=== PATIENT | male | born 1950 | race Caucasian/White ===

== ENCOUNTER 2021-10-07 18:01 | Inpatient (IN) | payer MEDICARE, OTHER ==
[~2021-10-07] VITALS: Ht 198.1 cm; Wt 64.9 kg
[2021-10-07 18:48] LABS: HEMATOCRIT 36.2 % (36.7-47.1); MEAN CORPUSCULAR HEMOGLOBIN 34.4 uug (23.8-33.4); MEAN CORPUSCULAR VOLUME 101.2 fL (73.0-96.2); PLATELET COUNT (AUTO) 223 K/uL (152-348)
[2021-10-07 18:59] LABS: POTASSIUM 4.3 mmol/L (3.5-5.1)
[2021-10-07 19:04] LABS: BILIRUBIN,DIRECT 0.3 mg/dL (0.0-0.2); BILIRUBIN,TOTAL 0.9 mg/dL (0.2-1.0); TOTAL PROTEIN, SERUM 6.9 g/dL (6.4-8.2)
[2021-10-07] MEDS ORDERED: MORPHINE SULFATE 2 MG/1 ML DISP.SYRIN IV ONE (19:15)
[2021-10-07] MEDS ORDERED: MORPHINE SULFATE 4 MG/1 ML DISP.SYRIN ONE (19:27)
--- NOTE | 2021-10-07 19:45 | NUR ---
Dr. Rodas at bedside speaking with pt and family. pt here for right hip pain.
--- NOTE | 2021-10-07 20:11 | NUR ---
spoke with Kit at [facility]. will fax clinicals covid and labs to fax [phone].
[2021-10-07] MEDS ORDERED: IV NS 1000 ML 1,000 ML IV ONE (20:45)
--- NOTE | 2021-10-07 20:54 | NUR ---
received a call from [facility] says she is still working on a possible tr.
--- NOTE | 2021-10-07 21:04 | NUR ---
Hector called back from [facility] no tele beds tonight. possible ED to ED tr. arrieta call back.
--- NOTE | 2021-10-07 21:19 | NUR ---
spoke with Svetlana lead case manager in [place] they state they will not do ED to ED transfer.
--- NOTE | 2021-10-08 00:13 | NUR ---
call to Dr. Munoz for consult.
--- NOTE | 2021-10-08 00:27 | NUR ---
call to [facility] spoke with Jhony states transport will take pt to [facility] for cat scan after they transport another pt from [facility].
[2021-10-08] MEDS ORDERED: FOLI1TAB94 PO (00:40)
[2021-10-08] MEDS ORDERED: ERGO400C PO (00:40)
[2021-10-08] MEDS ORDERED: THIA100V2 IM (00:40)
[2021-10-08] MEDS ORDERED: LEVO50TA8 PO (00:40)
[2021-10-08] MEDS ORDERED: BENA20TA9 PO (00:40)
[2021-10-08] MEDS ORDERED: DOXY50CA2 PO (00:40)
[2021-10-08] MEDS ORDERED: IBAN150T16 PO (00:40)
[2021-10-08] MEDS ORDERED: PANT40TA49 PO (00:40)
--- NOTE | 2021-10-08 01:39 | NUR ---
called [facility] for panel call
--- NOTE | 2021-10-08 01:48 | NUR ---
Dr. Rodas is speaking with Nahid Hutchins for admission. pt is going to [facility] for ct head and ct cervical with [facility] rig [address].
--- NOTE | 2021-10-08 01:59 | NUR ---
pt taken to [facility] by [facility] for cat scan of head and cervical. [address].
[2021-10-08] MEDS ORDERED: ACETAMINOPHEN 325 MG TABLET PO PRN (02:00)
[2021-10-08] MEDS ORDERED: LORAZEPAM 2 MG/1 ML VIAL IV PRN (02:00)
[2021-10-08] MEDS ORDERED: ONDANSETRON 4 MG/2 ML VIAL IV PRN (02:00)
[2021-10-08] MEDS ORDERED: MORPHINE SULFATE 2 MG/1 ML DISP.SYRIN IV PRN ×2 (02:00→06:00)
--- NOTE | 2021-10-08 03:03 | NUR ---
pt returned from [facility] after having a cat scan of the head and cervical.
--- NOTE | 2021-10-08 04:16 | NUR ---
report given to Michelle KWON pt to go to room 321.
--- NOTE | 2021-10-08 04:16 | NUR ---
Received admission report from ARIELLE Velazquez RN.
--- NOTE | 2021-10-08 04:45 | NUR ---
Patient arrived to the floor via gurney accompanied by ER nurse. Awake, AO x 4, verbally responsive, able to make needs known. Transferred to bed with 3 people assist with limited/restricted range of motion on RLE. Patient complaint of pain when touched on affected area. On continuous O2 at 2L/min via NC saturating 98% at this time. VS taken and recorded, stable. Oriented to staff, room, call lights, TV remote and bed functions. Safety measures and fall prevention initiated. Routine admission care done. Plan of care initiated.
--- NOTE | 2021-10-08 04:55 | NUR ---
pt was transferred to room 321 via [facility] with all belongings, DOYLE Martinez in room to receive the pt.
[2021-10-08 05:40] VITALS: BP 141/76
[2021-10-08] MEDS: IV NS 1000 ML 1,000 ML IV PRN ×2 (05:54→22:20)
[2021-10-08] MEDS: ENOXAPARIN SODIUM 40 MG/0.4 ML DISP.SYRIN SQ SCH (05:55)
--- NOTE | 2021-10-08 06:38 | NUR ---
Patient medicated once with Morphine 4 mg IVP as ordered and needed due to complaint of lower neck and right hip pain in scale of 10/10. Will monitor.
--- NOTE | 2021-10-08 08:00 | NUR ---
RECEIVED PATIENT RESTING IN BED NO SIGNS OF ACUTE PAIN UNLESS DURING POSITIONING. MONITORED FOR PAIN MANAGEMENT
[2021-10-08] MEDS ORDERED: PANTOPRAZOLE SODIUM 40 MG TABLET.DR PO SCH (09:00)
[2021-10-08] MEDS ORDERED: Medication Not On Formulary EA (Cholecalciferol (Vitamin D3) (Vitamin D3) 1 CAP) PO SCH (09:00)
[2021-10-08] MEDS ORDERED: DOXYCYCLINE HYCLATE 50 MG PO SCH (09:00)
[2021-10-08] MEDS: BENAZEPRIL HCL 20 MG TABLET PO SCH ×2 (09:20→21:18)
[2021-10-08] MEDS: FOLIC ACID 1 MG TABLET PO SCH (09:21)
[2021-10-08] MEDS: THIAMINE HCL 100 MG TABLET PO SCH (09:21)
[2021-10-08] MEDS: DOXYCYCLINE HYCLATE 100 MG TABLET PO SCH (09:21)
[2021-10-08] MEDS: CHOLECALCIFEROL 400 UNITS TABLET PO SCH (09:21)
[2021-10-08] MEDS: PANTOPRAZOLE SODIUM 40 MG VIAL IV SCH (09:21)
[2021-10-08] MEDS: LEVOTHYROXINE SODIUM 50 MCG TABLET PO SCH (09:29)
--- NOTE | 2021-10-08 10:00 | NUR ---
SEEN BY DR ZHENG SPOKE TO AND DISCUSSED PLAN OF CARE. PER DR RUTH SURGERY WILL BE EITHER TODAY OR TOMORROW DEPENDING ON ECHO RESULTS
[2021-10-08 11:44] VITALS: BP 118/62
[2021-10-08 15:48] VITALS: BP 111/74
--- NOTE | 2021-10-08 17:54 | NUR ---
SPOKE WITH UROLOGY PHYSICIAN ON DUTY AND SAID SURGERY WILL BE TOMORROW AT 0730. PATIENT TO BE NPO 8 HRS BEFORE SURGERY. WILL PASS TO BLASTING HELPER
--- NOTE | 2021-10-08 20:11 | NUR ---
Received patient in bed awake and able to make needs known.Denies pain at this time. On 2LPM via NC.IV on right AC was accidentally pulled out by patient. Re-inserted new IV line on left FA 20g with good blood return infusing IVF.NPO after 2300. Patient made aware.Will continue to monitor.Continue safety measures.
[2021-10-08 21:05] VITALS: BP 108/82
[2021-10-09] VITALS (7 sets, daily range): BP systolic 102–146; BP diastolic 67–100
[2021-10-09] MEDS ORDERED: VANCOMYCIN 1000 MG VIAL ONE (06:15)
[2021-10-09 06:45] LABS: HEMATOCRIT 28.6 % (36.7-47.1); MEAN CORPUSCULAR HEMOGLOBIN 34.8 uug (23.8-33.4); MEAN CORPUSCULAR VOLUME 100.9 fL (73.0-96.2); PLATELET COUNT (AUTO) 155 K/uL (152-348)
[2021-10-09] MEDS: LEVOTHYROXINE SODIUM 50 MCG TABLET PO SCH (06:50)
--- NOTE | 2021-10-09 07:00 | NUR ---
Patient picked up by nurses for Rt hip Im nailing. at bedside. VSs. AFebrile throughout the night.
[2021-10-09 07:12] LABS: CREATININE 0.8 mg/dL (0.6-1.3); MAGNESIUM 1.3 mg/dL (1.8-2.4); PHOSPHOROUS 2.5 mg/dL (2.5-4.9); POTASSIUM 4.1 mmol/L (3.5-5.1)
[2021-10-09 07:18] LABS: *BILIRUBIN,URIN 1+ (NEGATIVE); *BLOOD, URINE NEGATIVE (NEGATIVE); *CLARITY,URINE CLEAR (CLEAR); *COLOR,URINE YELLOW (YELLOW); *KETONES,URINE 3+ (NEGATIVE); *UROBILINOGEN,URINE 0.2 E.U./dl (NORMAL); LEUKOCYTE ESTERASE ,URINE NEGATIVE (NEGATIVE); NITRITE, URINE NEGATIVE (NEGATIVE); UGLUCOSE NEGATIVE (NEGATIVE)
[2021-10-09] MEDS ORDERED: FAMOTIDINE. 20 MG/2 ML VIAL IV ONE (07:28)
[2021-10-09] MEDS ORDERED: MIDAZOLAM HCL 2 MG/2 ML VIAL ONE (07:28)
[2021-10-09] MEDS ORDERED: HYDROMORPHONE 2 MG/1 ML DISP.SYRIN ONE (07:28)
[2021-10-09] MEDS ORDERED: ROCURONIUM BROMIDE 50 MG/5 ML VIAL ONE (07:29)
[2021-10-09 07:38] LABS: THYROID STIMULATING HORMONE 2.507 mIU/mL (0.358-3.740)
[2021-10-09] MEDS ORDERED: EPHEDRINE SULFATE 50 MG/ML AMPUL IM ONE (08:13)
[2021-10-09] MEDS ORDERED: SEVOFLURANE 250 ML BOTTLE IH ONE (08:13)
[2021-10-09] MEDS ORDERED: CEFAZOLIN 1 G VIAL IM ONE (08:13)
[2021-10-09] MEDS ORDERED: LIDOCAINE-MPF 2% 5 ML VIAL IJ ONE (08:13)
[2021-10-09] MEDS ORDERED: DEXAMETHASONE SOD PHOSPHATE 4 MG INJ IV ONE (08:13)
[2021-10-09] MEDS ORDERED: PROPOFOL 200 MG/20 ML BOTTLE IV ONE (08:13)
[2021-10-09] MEDS ORDERED: KETOROLAC TROMETHAMINE 30 MG INJ IM ONE (08:13)
[2021-10-09] MEDS ORDERED: ONDANSETRON 4 MG/2 ML VIAL IV ONE ×2 (08:13)
[2021-10-09 08:54] LABS: RBC,URINE NONE SEEN /HPF (0-3)
[2021-10-09 08:55] LABS: BACTERIA,URINE NONE SEEN /HPF (NONE SEEN); SQUAMOUS EPITHELIAL CELL,UR FEW /HPF (NONE SEEN); WBC,URINE 0-3 /HPF (0-3)
[2021-10-09] MEDS: THIAMINE HCL 100 MG TABLET PO SCH (09:00)
[2021-10-09] MEDS: ENOXAPARIN SODIUM 40 MG/0.4 ML DISP.SYRIN SQ SCH (09:00)
[2021-10-09] MEDS: BENAZEPRIL HCL 20 MG TABLET PO SCH ×2 (09:00→21:00)
[2021-10-09] MEDS: PANTOPRAZOLE SODIUM 40 MG VIAL IV SCH (09:00)
[2021-10-09] MEDS: DOXYCYCLINE HYCLATE 100 MG TABLET PO SCH (09:00)
[2021-10-09] MEDS: FOLIC ACID 1 MG TABLET PO SCH (09:00)
[2021-10-09] MEDS: CHOLECALCIFEROL 400 UNITS TABLET PO SCH (09:00)
[2021-10-09] MEDS ORDERED: MORPHINE SULFATE 2 MG/1 ML DISP.SYRIN IV PRN (10:00)
[2021-10-09] MEDS: MAGNESIUM SULFATE/D5W 100 ML IV SCH ×4 (10:24→13:53)
--- NOTE | 2021-10-09 10:45 | NUR ---
Patient back from surgery s/p Rt hip nailing .Sx site with dressing intact clean and dry.No active bleeding noted. O2 at 2LPM via Nc .no acute distress noted.Patient OOB with PT in A.M PWB right leg w/ walker.Continue ATB x3 doses. Administered mg IV as ordered. Will continue to monitor. at bedside.VSs
--- NOTE | 2021-10-09 13:30 | NUR ---
Pt confused. Reorient patient to time and place. Pt visually hallucinating and pointing to the ceiling that there are crickets. stated to pt that theres no crickets on the ceiling. Ice applied on right hip. Pt able to follow directions. Pt able to wiggle toes and feel sensation. Dressing noted on right hip. Call light is within reach. IVF infusing as ordered. Call light is within reach.
--- NOTE | 2021-10-09 13:35 | NUR ---
SW attempted to do a consult to provide resources for alcoholism treatment for the patient. The patient is too sedated after anesthesia from surgery. SW will follow up.
[2021-10-09] MEDS: CEFAZOLIN 1 G in IV DEXTROSE 5% 50 ML IV SCH (15:12)
[2021-10-09] MEDS: IV D5W-0.45% NS +20 KCL 1,000 ML IV PRN (15:14)
[2021-10-09] MEDS ORDERED: LACTULOSE 20 G/30 ML LIQUID UDC PO PRN (19:15)
[2021-10-10] MEDS: CEFAZOLIN 1 G in IV DEXTROSE 5% 50 ML IV SCH (00:38)
[2021-10-10 04:20] VITALS: BP 150/90
[2021-10-10] MEDS: HYDROCODONE/APAP 10-325 MG TABLET PO PRN ×2 (04:56→20:12)
[2021-10-10] MEDS: LEVOTHYROXINE SODIUM 50 MCG TABLET PO SCH (06:36)
[2021-10-10] MEDS: IV D5W-0.45% NS +20 KCL 1,000 ML IV PRN (06:47)
[2021-10-10] MEDS: FOLIC ACID 1 MG TABLET PO SCH (08:42)
[2021-10-10] MEDS: PANTOPRAZOLE SODIUM 40 MG VIAL IV SCH (08:42)
[2021-10-10] MEDS: CHOLECALCIFEROL 400 UNITS TABLET PO SCH (08:42)
[2021-10-10] MEDS: THIAMINE HCL 100 MG TABLET PO SCH (08:42)
[2021-10-10] MEDS: DOXYCYCLINE HYCLATE 100 MG TABLET PO SCH (08:42)
[2021-10-10] MEDS: BENAZEPRIL HCL 20 MG TABLET PO SCH ×2 (08:43→20:13)
[2021-10-10] MEDS: ENOXAPARIN SODIUM 40 MG/0.4 ML DISP.SYRIN SQ SCH (08:49)
--- NOTE | 2021-10-10 09:43 | NUR ---
Seen by PT, patient is fearful and needs further teaching regarding healing process post op. Patient is alert to self and place with some confusion and forgetfulness, able to reorient easily. Denies any pain while at rest, c/o pain to right hip on movement and exercise. no SOB, on RA. Able to use urinal for voiding, urine is clear and yazan. All need attended, call light within reach.
[2021-10-10 11:24] LABS: HEMATOCRIT 24.6 % (36.7-47.1); MEAN CORPUSCULAR VOLUME 101.4 fL (73.0-96.2); PLATELET COUNT (AUTO) 178 K/uL (152-348)
[2021-10-10 11:37] LABS: BILIRUBIN,TOTAL 0.8 mg/dL (0.2-1.0); POTASSIUM 3.8 mmol/L (3.5-5.1); TOTAL PROTEIN, SERUM 5.7 g/dL (6.4-8.2)
[2021-10-10 11:39] LABS: MAGNESIUM 2.2 mg/dL (1.8-2.4); PHOSPHOROUS 2.1 mg/dL (2.5-4.9)
[2021-10-10] MEDS: CHLORDIAZEPOXIDE HCL 25 MG CAPSULE PO SCH ×2 (11:50→17:13)
[2021-10-10] MEDS ORDERED: SODIUM PHOSPHATE MM 15 MMOL in IV NORMAL SALINE 250 ML IV ONE (17:00)
--- NOTE | 2021-10-10 17:00 | NUR ---
Patient noted to have shallow breathing and wheezing, Incentive spirometer provided, patient is passive when teaching is provided, needs further reinforcement of teaching. at bedside and willing to continue teaching. is able to demonstrate correct use of IS.
[2021-10-10 17:14] VITALS: BP 117/73
[2021-10-10 20:00] VITALS: BP 123/73
[2021-10-11 04:00] VITALS: BP 144/86
[2021-10-11] MEDS: LEVOTHYROXINE SODIUM 50 MCG TABLET PO SCH (06:17)
[2021-10-11] MEDS: PANTOPRAZOLE SODIUM 40 MG TABLET.DR PO SCH (06:17)
[2021-10-11] MEDS ORDERED: ALBUTEROL SULFATE 2.5 MG/3 ML NEBU NEB PRN (06:30)
[2021-10-11] MEDS ORDERED: IPRATROPIUM BROMIDE 0.5 MG/2.5 ML NEBU NEB PRN (06:30)
--- NOTE | 2021-10-11 06:35 | NUR ---
Patient noted with increased wheezing, 02 sats remain 92-94 on 2L 02 sats. DELPHI DEVELOPER housing relocation Cuong made aware with orders for Albuterol and atrovent nebulizers/ RT made aware of need for treatment.
[2021-10-11 07:22] LABS: HEMATOCRIT 23.2 % (36.7-47.1); MEAN CORPUSCULAR HEMOGLOBIN 35.3 uug (23.8-33.4); MEAN CORPUSCULAR VOLUME 101.3 fL (73.0-96.2); PLATELET COUNT (AUTO) 150 K/uL (152-348)
[2021-10-11 07:40] LABS: CREATININE 0.8 mg/dL (0.6-1.3); MAGNESIUM 1.8 mg/dL (1.8-2.4); PHOSPHOROUS 3.1 mg/dL (2.5-4.9); POTASSIUM 3.8 mmol/L (3.5-5.1)
--- NOTE | 2021-10-11 08:00 | NUR ---
PT ON BED AWAKE AND CONFUSED . NO DISTRESS NOTED. ON 2L NC SATURATING AT 98%.NO COMPLAIN OF PAIN. INCISION ON RIGHT HIP NOTED FROM SURGERY. DRESSING IS NOT SOILED. WILL MONITOR FOR BLEEDING.
[2021-10-11] MEDS: HYDROCODONE/APAP 10-325 MG TABLET PO PRN ×2 (08:51→20:26)
[2021-10-11] MEDS ORDERED: ACET325T53 PO (09:12)
[2021-10-11] MEDS ORDERED: ENOX40DI SQ (09:12)
[2021-10-11] MEDS ORDERED: CHLO25CA22 PO (09:12)
[2021-10-11] MEDS ORDERED: THIA100T13 PO (09:12)
[2021-10-11] MEDS ORDERED: HYDR-3980 PO (09:12)
--- NOTE | 2021-10-11 09:30 | NUR ---
GAVE NORCO 10-325MG PRN FOR PAIN PRIOR PHYSICAL THERAPHY. WILL REASSESS IN 1HR
[2021-10-11] MEDS: ENOXAPARIN SODIUM 40 MG/0.4 ML DISP.SYRIN SQ SCH (10:10)
[2021-10-11] MEDS: CHLORDIAZEPOXIDE HCL 25 MG CAPSULE PO SCH ×2 (10:10→17:52)
[2021-10-11] MEDS: CHOLECALCIFEROL 400 UNITS TABLET PO SCH (10:10)
[2021-10-11] MEDS: DOXYCYCLINE HYCLATE 100 MG TABLET PO SCH (10:10)
[2021-10-11] MEDS: FOLIC ACID 1 MG TABLET PO SCH (10:10)
[2021-10-11] MEDS: THIAMINE HCL 100 MG TABLET PO SCH (10:10)
[2021-10-11] MEDS: BENAZEPRIL HCL 20 MG TABLET PO SCH ×2 (10:10→20:28)
[2021-10-11 12:00] VITALS: BP 140/80
[2021-10-11 16:33] VITALS: BP 145/61
--- NOTE | 2021-10-11 18:00 | NUR ---
PT IS RELAX AND EATING DINNER. NO SOB: NO ACUTE DISTRESS NOTED. PT IS A0X4; CHANGED INCISION DRESSING ON RIGHT HIP.
--- NOTE | 2021-10-11 19:20 | NUR ---
RECEIVED PATIENT IN BED. AAOX4. ABLE TO MAKE NEEDS KNOWN. IV ACCESS PATENT AND INTACT. DENIES SOB, CHEST PAIN OR DIZZINESS. REQUESTED FOR PAIN MEDICATION. WOUND DRESSING INTACT. PT ADVISED TO UTILIZE INCENTIVE SPIROMETER, PT VERBALIZED UNDERSTANDING. SAFETY PRECAUTIONS. MONITORED CLOSELY.
[2021-10-11 20:09] VITALS: BP 94/55
[2021-10-12 04:22] VITALS: BP 121/71
[2021-10-12] MEDS: PANTOPRAZOLE SODIUM 40 MG TABLET.DR PO SCH (06:12)
[2021-10-12] MEDS: LEVOTHYROXINE SODIUM 50 MCG TABLET PO SCH (06:12)
[2021-10-12 07:58] VITALS: BP 151/76
[2021-10-12] MEDS: THIAMINE HCL 100 MG TABLET PO SCH (09:12)
[2021-10-12] MEDS: DOXYCYCLINE HYCLATE 100 MG TABLET PO SCH (09:13)
[2021-10-12] MEDS: CHLORDIAZEPOXIDE HCL 25 MG CAPSULE PO SCH (09:13)
[2021-10-12] MEDS: FOLIC ACID 1 MG TABLET PO SCH (09:13)
[2021-10-12] MEDS: CHOLECALCIFEROL 400 UNITS TABLET PO SCH (09:13)
[2021-10-12 09:15] VITALS: BP 116/79
[2021-10-12] MEDS: BENAZEPRIL HCL 20 MG TABLET PO SCH (09:15)
[2021-10-12] MEDS: ENOXAPARIN SODIUM 40 MG/0.4 ML DISP.SYRIN SQ SCH (09:18)
[2021-10-12] MEDS: HYDROCODONE/APAP 10-325 MG TABLET PO PRN (10:18)
--- NOTE | 2021-10-12 14:13 | NUR ---
DISCHARGED PATIENT TO ACUTE REHAB FOR CONTINUITY OF CARE. NO DISTRESS IDENTIFIED. BELONGING LIST SIGNED. DC INSTRUCTIONS GIVEN WITH UNDERSTANDING NOTED. ALL NEEDS ATTENDED. SKIN INTACT TO THE INCISION SITE, NO BLEEDING NOTED.
[2021-10-12] MEDS: MAGNESIUM SULFATE/D5W 100 ML IV SCH ×2 (21:30→23:00)
[2021-10-12 22:22] LABS: ABG BASE EXCESS -11.2 mmol/L; ABG HCO3 13.6 mmol/L; ABG PCO2 27.3 mmHg (35.0-45.0); ABG PH 7.315 (7.350-7.450); ABG PO2 227.2 mmHg (75.0-100.0); ABG SITE LEFT RADIAL; ABG TOTAL HEMOGLOBIN 10.4 G/dL (13.5-18.0); COHb 0.3 % (0.5-1.5); MetHb 0.1 % (0.0-1.5); O2Hb 99.2 % (94.0-97.0)
[2021-10-12] MEDS ORDERED: IV NS 1000 ML 1,000 ML IV ONE (23:00)
[2021-10-12] MEDS ORDERED: Medication Not On Formulary EA (Ibandronate Sodium (Boniva) 150 MG) PO SCH (23:00)
--- NOTE | 2021-10-13 01:40 | NUR ---
pt admitted to ER as CCU is closed. will continue to chart on ER tracker
[2021-10-13] MEDS ORDERED: HEPARIN/D5W DRIP 500 ML IV PRN (02:00)
[2021-10-13] MEDS ORDERED: ENOXAPARIN SODIUM 80 MG/0.8 ML DISP.SYRIN SQ SCH (02:15)
--- NOTE | 2021-10-13 03:09 | NUR ---
70mg lovenox not given as Dr brownlee ordered heparin drip.
[2021-10-13] MEDS ORDERED: DEXAMETHASONE SOD PHOSPHATE 4 MG INJ IV ONE (06:30)
--- NOTE | 2021-10-13 07:37 | NUR ---
A call to Assembler Truck Trailer Dr. Valadez to report events post receiving pt. from E.R. nurse. As stated "He'll come to see pt. later on". At the same time Dr. Charles on the phone with ui application developer Dr. Madison who will see patient soon.
[2021-10-13] MEDS ORDERED: PROPOFOL 100 ML IV PRN (07:45)
[2021-10-13] MEDS ORDERED: THIAMINE HCL 100 MG TABLET PO SCH (09:00)
[2021-10-13] MEDS ORDERED: BENAZEPRIL HCL 20 MG TABLET PO SCH (09:00)
[2021-10-13] MEDS ORDERED: ENOXAPARIN SODIUM 40 MG/0.4 ML DISP.SYRIN SQ SCH (09:00)
== END 2021-10-12 14:21 | DRG 481 ==
LOC: ER 18:03 → MEDSURG3 10-08 02:36
PROVIDERS: ADMIT Internal Medicine; ATTEND Internal Medicine
PROC: 0QS606Z Reposition Right Upper Femur with Intramedullary Internal Fixation Device, Open Approach (ICD-10-PCS; principal; 2021-10-09)
DX: S72.141A Displaced intertrochanteric fracture of right femur, initial encounter for closed fracture (principal); E44.0 Moderate protein-calorie malnutrition; Z68.1 Body mass index [BMI] 19.9 or less, adult; E87.1 Hypo-osmolality and hyponatremia; J98.11 Atelectasis; F10.129 Alcohol abuse with intoxication, unspecified; Y90.4 Blood alcohol level of 80-99 mg/100 ml; D53.9 Nutritional anemia, unspecified; E03.9 Hypothyroidism, unspecified; I10 Essential (primary) hypertension; Z20.822 Contact with and (suspected) exposure to COVID-19; E88.09 Other disorders of plasma-protein metabolism, not elsewhere classified; W18.30XA Fall on same level, unspecified, initial encounter; Y93.9 Activity, unspecified; Y92.009 Unspecified place in unspecified non-institutional (private) residence as the place of occurrence of the external cause; R29.6 Repeated falls
CPT/HCPCS: 36415; 36600; 70450; 71045; 72125; 72170; 73502; 73503; 83735; 84100; 84443; 85025; 85730; 87806; 93005; 93307; 97161; A4649; A4663; A6209; C1713; C9113; G0378; G0480; J0690; J1100; J1170; J1650; J1885; J2250; J2270; J2405; J3370; J3475; J3490; J3590; J7040

== ENCOUNTER 2021-10-12 14:35 | Inpatient (IN) | payer MEDICARE, OTHER ==
[~2021-10-12] VITALS: Ht 198.1 cm; Wt 64.9 kg
[~2021-10-12 14:35] MED LIST: ACET325T53 PO; BENA20TA9 PO; CHLO25CA22 PO; DOXY50CA2 PO; ENOX40DI SQ; ERGO400C PO; FOLI1TAB94 PO; HYDR-3980 PO; IBAN150T16 PO; LEVO50TA8 PO; PANT40TA49 PO; THIA100T13 PO
[2021-10-12] MEDS ORDERED: REMEDY ESSENTIAL ZINC PASTE 113 GM TP PRN (15:15)
[2021-10-12] MEDS ORDERED: ACETAMINOPHEN 325 MG TABLET PO PRN ×2 (15:15→19:15)
[2021-10-12] MEDS ORDERED: Medication Not On Formulary EA (Ibandronate Sodium (Boniva) 150 MG) PO SCH (16:15)
[2021-10-12] MEDS ORDERED: ACETAMINOPHEN 325 MG TABLET-SA PATIENTS-PAIN ONLY PO PRN (16:15)
[2021-10-12] MEDS ORDERED: HYDROCODONE/APAP 10-325 MG TABLET PO PRN (16:15)
--- NOTE | 2021-10-12 16:38 | NUR ---
Admitted patient to acute REHAB from [facility]. Photo of surgical site in chart, dry, intact, no drainage noted. continent. not in distress. will continue to monitor.
--- NOTE | 2021-10-12 16:39 | NUR ---
patient was noted with cough and secretions, MD made aware with orders and carried out. STAT CXR, procal, and COVID antigen test.
[2021-10-12 16:42] VITALS: BP 117/68
--- NOTE | 2021-10-12 16:50 | NUR ---
COVID test done, awaiting result.
--- NOTE | 2021-10-12 17:43 | NUR ---
Report from the lab received, the patient is COVID (+). Informed MD, ordered isolation and pulmo consult. Addendum: 10/12/21 at 1928 by RANGEL ODONNELL RN Per Dr. Huntley patient will stay as ARU, will defer to next shift to clarify.
[2021-10-12 19:14] LABS: CREATININE 0.8 mg/dL (0.6-1.3); POTASSIUM 3.9 mmol/L (3.5-5.1)
[2021-10-12] MEDS ORDERED: FLUTICASONE/VILANTEROL 1 EACH BLST.W.DEV INH SCH (19:15)
[2021-10-12] MEDS ORDERED: ALBUTEROL SULFATE 8 GM HFA.AER.AD IH PRN (19:15)
--- NOTE | 2021-10-12 19:16 | NUR ---
Patient remained stable, on continuous o2 at 2L, sats at 97-100%. no distress identified. will endorse for continuity of care.
[2021-10-12 19:18] LABS: HEMATOCRIT 24.3 % (36.7-47.1); MEAN CORPUSCULAR HEMOGLOBIN 34.9 uug (23.8-33.4); MEAN CORPUSCULAR VOLUME 102.5 fL (73.0-96.2); PLATELET COUNT (AUTO) 158 K/uL (152-348)
[2021-10-12 19:26] LABS: NEUTROPHILS % (MANUAL) 0 % (42-75)
[2021-10-12 19:52] LABS: BILIRUBIN,TOTAL 0.9 mg/dL (0.2-1.0); TOTAL PROTEIN, SERUM 5.5 g/dL (6.4-8.2)
--- NOTE | 2021-10-12 19:55 | NUR ---
Patient alert and able to make needs known.HOB elevated.IV patent and intact on Rt Fa.D/c Patient from ARU and transfer/Admit to Med-surg unit.Patient will be transfer to room 318 for isolation. made aware.
[2021-10-12] MEDS ORDERED: EPINEPHRINE 1:10,000 1 MG/10 ML DISP.SYRIN IV ONE (20:36)
[2021-10-12] MEDS ORDERED: BENAZEPRIL HCL 20 MG TABLET PO SCH (21:00)
[2021-10-12] MEDS ORDERED: MAGNESIUM SULFATE/D5W 200 ML ONE (21:28)
[2021-10-13] MEDS ORDERED: PANTOPRAZOLE SODIUM 40 MG TABLET.DR PO SCH (07:00)
[2021-10-13] MEDS ORDERED: LEVOTHYROXINE SODIUM 50 MCG TABLET PO SCH (07:00)
[2021-10-13] MEDS ORDERED: CHOLECALCIFEROL 400 UNITS TABLET PO SCH (09:00)
[2021-10-13] MEDS ORDERED: DOXYCYCLINE HYCLATE 100 MG TABLET PO SCH (09:00)
[2021-10-13] MEDS ORDERED: THIAMINE HCL 100 MG TABLET PO SCH (09:00)
[2021-10-13] MEDS ORDERED: FOLIC ACID 1 MG TABLET PO SCH (09:00)
[2021-10-13] MEDS ORDERED: ENOXAPARIN SODIUM 40 MG/0.4 ML DISP.SYRIN SQ SCH (09:00)
== END 2021-10-12 20:37 | disposition short-term general hospital (02) | DRG 561 ==
PROVIDERS: ADMIT Physical Medicine & Rehabilitation Pain Medicine; ATTEND Physical Medicine & Rehabilitation Pain Medicine
DX: S72.001D Fracture of unspecified part of neck of right femur, subsequent encounter for closed fracture with routine healing (principal); W19.XXXD Unspecified fall, subsequent encounter
CPT/HCPCS: 36415; 70030-TC; 71045; 83615; 85025; 87040; J0171; J3475; J3535

== ENCOUNTER 2021-10-12 20:37 | Inpatient (IN) | payer MEDICARE, OTHER ==
[~2021-10-12] VITALS: Ht 195.6 cm; Wt 64.9 kg
--- NOTE | 2021-10-12 04:34 | NUR ---
2112 code blue was called. 2114 UNDERWRITING CLERKS SUPERVISOR arrived. CPR was already initiated by RN and manual ventilation was given via ambu bag at 15 lpm. 2119 defibrillated patient and re-assessed patient, continued cpr. 2129 ER doctor intubated patient with 6.5 ETT secured at 22cm at lip. Patient was placed on vent with new settings AC 16 500 +5 100%. Patient was transferred to ER. Will continue to monitor
[~2021-10-12 20:37] MED LIST changes: +THIA100V2 IM
--- NOTE | 2021-10-12 21:05 | NUR ---
Admitted patient to room 318 from ARU/321. Found unresponsive to physical and verbal stimuli. Skin pale, pupils unresponsive or non reactive to light . unable to appreciate pulse. Hermila elmore was called .Hermila elmore team arrived.CPR ongoing. ER doctor intubated Patient .Protocol followed for hermila elmore.Refer to hermila elmore record for details.
[2021-10-12] MEDS: MAGNESIUM SULFATE/D5W 100 ML IV SCH ×2 (22:00→23:00)
[2021-10-12] MEDS ORDERED: ACETAMINOPHEN 325 MG TABLET PO PRN (23:45)
[2021-10-12] MEDS ORDERED: NOREPINEPHRINE BITARTRATE 32 MG in IV NORMAL SALINE 218 ML IV PRN (23:45)
[2021-10-12] MEDS ORDERED: MORPHINE SULFATE 2 MG/1 ML DISP.SYRIN IV PRN (23:45)
[2021-10-12] MEDS ORDERED: ONDANSETRON 4 MG/2 ML VIAL IV PRN (23:45)
[2021-10-12] MEDS ORDERED: ALBUTEROL SULFATE 8 GM HFA.AER.AD IH PRN (23:45)
[2021-10-12] MEDS ORDERED: IV NORMAL SALINE 250 ML IV ONE (23:53)
[2021-10-12] MEDS ORDERED: IOHEXOL 350 100 ML INFUS..BTL ONE (23:53)
[2021-10-12] MEDS ORDERED: SWABABLE VALVE TRANSFER SET EA MC ONE (23:53)
[2021-10-13] VITALS (20 sets, daily range): BP systolic 89–140; BP diastolic 46–88
[2021-10-13] MEDS ORDERED: CEFEPIME HCL 1 G in IV DEXTROSE 5% 50 ML IV SCH ×2
[2021-10-13 00:46] LABS: FERRITIN 3478 ng/mL (26-388); LACTATE DEHYDROGENASE 349 U/L (85-227)
[2021-10-13] MEDS ORDERED: CEFEPIME HCL 1 G VIAL ONE (01:06)
[2021-10-13] MEDS ORDERED: ENOXAPARIN SODIUM 80 MG/0.8 ML DISP.SYRIN SQ ONE (02:20)
[2021-10-13] MEDS ORDERED: HEPARIN/D5W DRIP 500 ML ONE (02:29)
[2021-10-13] MEDS ORDERED: NOREPINEPHRINE BITARTRATE 32 MG in IV NORMAL SALINE 218 ML IV PRN ×2 (05:45→08:45)
[2021-10-13] MEDS ORDERED: DEXAMETHASONE SOD PHOSPHATE 4 MG INJ ONE (06:42)
[2021-10-13] MEDS ORDERED: LEVOTHYROXINE SODIUM 50 MCG TABLET PO SCH (07:00)
[2021-10-13] MEDS ORDERED: PANTOPRAZOLE SODIUM 40 MG TABLET.DR PO SCH (07:00)
--- NOTE | 2021-10-13 07:00 | NUR ---
Received pt. on mechanical support ETT 6.5 & 22LL. ON A/C 16, Tv 500 Peep +5 and 40% FIO2, with this setting pt's saturation is in the 95-100%. Neuro-albarado pt. received with active seizures. no gag reflex Pupils MELBA & slugish. Patient received on Heparin drip running at 1100units/hr with next PTT at 0930. As per report pt. coded last night for details see paper documentation. Will continue with care plan.
--- NOTE | 2021-10-13 07:20 | NUR ---
Pulmonary services, Dr. Valadez in the unit to see and examine pt. report given.
[2021-10-13 07:41] LABS: HEMATOCRIT 24.7 % (36.7-47.1); MEAN CORPUSCULAR HEMOGLOBIN 35.5 uug (23.8-33.4); MEAN CORPUSCULAR VOLUME 101.3 fL (73.0-96.2); PLATELET COUNT (AUTO) 148 K/uL (152-348)
[2021-10-13] MEDS ORDERED: PROPOFOL 100 ML ONE (07:44)
[2021-10-13] MEDS ORDERED: LORAZEPAM 2 MG/1 ML VIAL ONE ×2 (07:59→11:40)
[2021-10-13] MEDS ORDERED: PANTOPRAZOLE SODIUM 40 MG VIAL ONE (08:00)
[2021-10-13] MEDS: LORAZEPAM 2 MG/1 ML VIAL IV PRN ×2 (08:00→11:41)
[2021-10-13] MEDS ORDERED: PROPOFOL 100 ML IV PRN (08:00)
[2021-10-13] MEDS: CEFEPIME HCL 1 G in IV DEXTROSE 5% 50 ML IV SCH ×2 (08:06→15:50)
[2021-10-13 08:19] LABS: CREATININE 0.9 mg/dL (0.6-1.3); POTASSIUM 3.7 mmol/L (3.5-5.1)
[2021-10-13 08:29] LABS: BILIRUBIN,TOTAL 0.8 mg/dL (0.2-1.0); PHOSPHOROUS 3.6 mg/dL (2.5-4.9); TOTAL PROTEIN, SERUM 5.4 g/dL (6.4-8.2)
[2021-10-13] MEDS ORDERED: HEPARIN/D5W DRIP 500 ML IV PRN (08:30)
[2021-10-13 08:31] LABS: ABG BASE EXCESS -3.5 mmol/L; ABG HCO3 18.8 mmol/L; ABG PCO2 24.6 mmHg (35.0-45.0); ABG PH 7.502 (7.350-7.450); ABG PO2 80.9 mmHg (75.0-100.0); ABG SITE LEFT RADIAL; ABG TOTAL HEMOGLOBIN 8.5 G/dL (13.5-18.0); COHb 0.3 % (0.5-1.5); MetHb 0.1 % (0.0-1.5); O2Hb 96.2 % (94.0-97.0); VENT MODE VENT - A/C; VT, ABG 500 mL
--- NOTE | 2021-10-13 08:43 | NUR ---
A call to pt's to consent for PICC line placement at this time Ms. Guillaume decline stating "I need to to talk to the attending physician first and I wanna know my 's brain activity before proceeding with invasive procedures, my 's last wishes were DNR/DNI, and his wishes were not honored".
[2021-10-13] MEDS ORDERED: ENOXAPARIN SODIUM 40 MG/0.4 ML DISP.SYRIN SQ SCH ×2 (09:00)
[2021-10-13] MEDS ORDERED: BENAZEPRIL HCL 20 MG TABLET PO SCH (09:00)
[2021-10-13] MEDS ORDERED: MIDAZOLAM HCL 50 MG in IV NORMAL SALINE 40 ML IV PRN (09:00)
[2021-10-13] MEDS ORDERED: FLUTICASONE/VILANTEROL 1 EACH BLST.W.DEV INH SCH (09:00)
[2021-10-13] MEDS ORDERED: THIAMINE HCL 100 MG TABLET PO SCH (09:00)
[2021-10-13] MEDS ORDERED: FOLIC ACID 1 MG TABLET PO SCH (09:00)
[2021-10-13] MEDS ORDERED: NOREPINEPHRINE BITARTRATE 8 MG in IV NORMAL SALINE 242 ML IV PRN (09:15)
--- NOTE | 2021-10-13 09:17 | NUR ---
Patient taken down for head CT. procedure went un-eventfull.
--- NOTE | 2021-10-13 10:00 | NUR ---
Pt's Ms. Guillaume in to visit and requested to have attending to call her for an update.
[2021-10-13] MEDS: FENTANYL CITRATE/PF 1,000 MCG in IV NORMAL SALINE 80 ML IV PRN (10:27)
--- NOTE | 2021-10-13 14:07 | NUR ---
A call from Dr. Rose and at this time orders to continue with care plan received and orders to increased versed to 7mh/hr over passing titration to help stop seizures and the undersigned was also informed that Neurologist is consulted to see pt. and He'll come to see pt later on.
--- NOTE | 2021-10-13 15:35 | NUR ---
Neurologist Dr. Almazan in the unit to see and examine pt. report given and with him at bedside orders to increase versed to 7mg with maximum of 10mg/hr. aware and witness pt. having active seizures despite been on versed and ativan.
--- NOTE | 2021-10-13 16:00 | NUR ---
EEG in progress.
[2021-10-13] MEDS: MIDAZOLAM HCL 50 MG in IV NORMAL SALINE 40 ML IV PRN (18:57)
[2021-10-14] VITALS (25 sets, daily range): BP systolic 57–118; BP diastolic 38–89
[2021-10-14] MEDS: CEFEPIME HCL 1 G in IV DEXTROSE 5% 50 ML IV SCH ×2
[2021-10-14 05:05] LABS: CREATININE 1.1 mg/dL (0.6-1.3); POTASSIUM 3.5 mmol/L (3.5-5.1)
[2021-10-14 05:08] LABS: HEMATOCRIT 31.9 % (36.7-47.1); MEAN CORPUSCULAR HEMOGLOBIN 34.3 uug (23.8-33.4); MEAN CORPUSCULAR VOLUME 102.7 fL (73.0-96.2); PLATELET COUNT (AUTO) 314 K/uL (152-348)
[2021-10-14 05:10] LABS: PHOSPHOROUS 4.5 mg/dL (2.5-4.9); TOTAL PROTEIN, SERUM 6.5 g/dL (6.4-8.2)
[2021-10-14 05:22] LABS: ABG BASE EXCESS -8.5 mmol/L; ABG HCO3 13.9 mmol/L; ABG PCO2 21.2 mmHg (35.0-45.0); ABG PH 7.436 (7.350-7.450); ABG SITE LEFT RADIAL; O2Hb 97.2 % (94.0-97.0); VENT MODE VENT - A/C; VT, ABG 500 mL
[2021-10-14 05:47] LABS: MAGNESIUM 2.1 mg/dL (1.8-2.4); PHOSPHOROUS 4.5 mg/dL (2.5-4.9)
[2021-10-14] MEDS ORDERED: NOREPINEPHRINE BITARTRATE 4 MG/4 ML VIAL IV ONE (06:45)
--- NOTE | 2021-10-14 07:00 | NUR ---
Received patient on mechanical support, On AC 16, ETT 6.5, 22LL, TV 500, PEEP of 5%, 40% FI02 saturating at 98-99%, no tachypnea noted. Patient is sedated, on Fentanyl at 25mcg/hr and Versed at 10mg/hr. Adequately sedated, no seizure activity noted, PERRLA, sluggish. He is on sinus rhythm, BP within desired limit with the support of Levophed as ordered. On Heparin drip running at 750units/hr per protocol and as ordered with PTT reading of 63.5. IV site patent, FC to gravity. will continue plan of care.
[2021-10-14] MEDS ORDERED: HEPARIN/D5W DRIP 500 ML ONE (07:02)
[2021-10-14] MEDS ORDERED: NOREPINEPHRINE BITARTRATE 32 MG in IV NORMAL SALINE 218 ML IV PRN (08:15)
[2021-10-14] MEDS ORDERED: DEXAMETHASONE SOD PHOSPHATE 10 MG INJ IV SCH (09:00)
[2021-10-14] MEDS ORDERED: BENAZEPRIL HCL 20 MG TABLET PO SCH (09:00)
--- NOTE | 2021-10-14 09:45 | NUR ---
At 0800H Dr New Flower seen the patient, care plan discussed with order to discontinue all orders except comfort measures/care. Family arrived at 0900H and requested to be at bedside. Called the RT, terminally extubated at 0920H converted to 2L NC, RR went up to 25-28, Fentanyl increased to 50mcg/hr, Versed remained at 10mg/hr as ordered. At 1000H, Jorje at bedside offered resources to the family. Comfort measures provided and family support provided. will continue to monitor.
[2021-10-14] MEDS: FENTANYL CITRATE/PF 1,000 MCG in IV NORMAL SALINE 80 ML IV PRN (10:56)
--- NOTE | 2021-10-14 11:15 | NUR ---
Spoke with Isabelle. Patient referral ID# is [id number].
[2021-10-14] MEDS: MIDAZOLAM HCL 50 MG in IV NORMAL SALINE 40 ML IV PRN ×2 (13:35→20:35)
--- NOTE | 2021-10-14 15:28 | NUR ---
Social work consult was requested for grief resources for family members. Patient is a 71-year-old white male admitted to the hospital for a right hip fracture. Patients requested terminal extubation yesterday to honor the patient's wishes . SW at bedside offered resources to the family. SW provided emotional support and family support. Family requested a carbon setter at patients bedside. ENRIQUE made the referral to the supervising nurse, and she made the request for a advisory intern with [facility] ([phone]). ENRIQUE left a voicemail to the family stating that the referral had been made.
--- NOTE | 2021-10-14 16:27 | NUR ---
Fentanyl increased to 75mcg/hr for comfort measures. Comfort care provided. Family support provided at bedside.
[2021-10-14 17:16] LABS: BAND % (MANUAL) 3 % (0-10); LYMPHOCYTES % (MANUAL) 7 % (20-40); MONOCYTES % (MANUAL) 9 % (2-10); NEUTROPHILS % (MANUAL) 81 % (42-75)
[2021-10-14] MEDS ORDERED: DC PROPOFOL ONCE EXTUBATED XX PRN (18:15)
--- NOTE | 2021-10-14 18:20 | NUR ---
Patient is on room air, comfortable, no distress identified. Saturating at 79%, BP 64/44, RR 17, HR 96. Provided patient with comfort measures. will endorse to the next shift for continuity of care.
--- NOTE | 2021-10-14 18:32 | NUR ---
Patient , Aundrea, signed the release of remains. Mortuary facility: [facility] at [address] [facility] [address] . Form in chart.
[2021-10-15] MEDS: FENTANYL CITRATE/PF 1,000 MCG in IV NORMAL SALINE 80 ML IV PRN ×2 (01:59→02:02)
[2021-10-15] MEDS: MIDAZOLAM HCL 50 MG in IV NORMAL SALINE 40 ML IV PRN (02:04)
--- NOTE | 2021-10-15 03:00 | NUR ---
0245 Patient is apneic for more than 3 minutes; no heart tones for three minutes; no response to noxious stimuli; Pupils are fixed and dilated; patient is pronounced at 0245H
--- NOTE | 2021-10-15 04:02 | NUR ---
Patient on versed and fentanyl drip via left arm heplock. Contact isolation maintained. Repositioned and monitor q2hr. in @ beginning of shift. BP 76/48 pulse ox 96% RA. At 0245am patient not breathing, no BP, no pulse. @ 0245. called and Dr Givens aware. [employer] called and made aware. Mortuary also called.
== END 2021-10-15 02:45 | DRG 208 ==
LOC: MEDSURG3 20:37 → CCU 23:41 → HOSPICE3 10-14 18:54
PROVIDERS: ADMIT Internal Medicine; ATTEND Internal Medicine
PROC: 5A1945Z Respiratory Ventilation, 24-96 Consecutive Hours (ICD-10-PCS; principal; 2021-10-12)
PROC: 5A2204Z Restoration of Cardiac Rhythm, Single (ICD-10-PCS; 2021-10-12)
PROC: 5A12012 Performance of Cardiac Output, Single, Manual (ICD-10-PCS; 2021-10-12)
PROC: 0BH18EZ Insertion of Endotracheal Airway into Trachea, Via Natural or Artificial Opening Endoscopic (ICD-10-PCS; 2021-10-12)
DX: J96.01 Acute respiratory failure with hypoxia (principal); U07.1 COVID-19; I26.99 Other pulmonary embolism without acute cor pulmonale; G93.1 Anoxic brain damage, not elsewhere classified; E87.1 Hypo-osmolality and hyponatremia; E44.0 Moderate protein-calorie malnutrition; Z68.1 Body mass index [BMI] 19.9 or less, adult; R57.9 Shock, unspecified; G93.40 Encephalopathy, unspecified; J98.11 Atelectasis; F10.239 Alcohol dependence with withdrawal, unspecified; I49.01 Ventricular fibrillation; E88.09 Other disorders of plasma-protein metabolism, not elsewhere classified; E03.9 Hypothyroidism, unspecified; I10 Essential (primary) hypertension; F10.20 Alcohol dependence, uncomplicated; I46.9 Cardiac arrest, cause unspecified; Z20.822 Contact with and (suspected) exposure to COVID-19; Z96.641 Presence of right artificial hip joint; D53.9 Nutritional anemia, unspecified; G25.3 Myoclonus; R56.9 Unspecified convulsions; Z91.81 History of falling
CPT/HCPCS: 36415; 36600; 70030-TC; 71045; 71275; 83615; 83735; 84100; 84484; 85025; 85730; 86140; 92950; 93005; 93307; 94002; 94003; 95819; A4663; C9113; G0378; J0692; J1100; J1644; J1650; J2060; J2250; J3010; J3490; J3535; J7040; J7050; Q9967